=== PATIENT | female | born 1990 | race African-American/Black ===

== ENCOUNTER 2017-06-21 11:25 | Emergency (ER) | payer OTHER ==
[2017-06-21] MEDS ORDERED: LIDOCAINE VISCOUS 2% PO ONE (17:14)
--- NOTE | 2017-06-21 17:18 | Emergency Department Report ---
ED ENT HPI - General Chief complaint: Sore Throat Stated complaint: FLU LIKE SYMPTOMS Time Seen by Provider: 06/21/17 15:43 Source: patient Mode of arrival: Ambulatory Limitations: No Limitations - History of Present Illness Initial comments: This is a 27-year-old female nontoxic, well nourished in appearance, no acute signs of distress presents to the ED with c/o of sore throat x1 week. Patient describes sore throat as sensation of swallowing razer blades. Patient denies any difficulty breathing, hoarness, chest pain, shortness of breathe, drooling, cough, body aches, fever, chills, numbness or tingling. Patient denies any allergies or PMH. MD complaint: sore throat -: week(s) (1) Location: throat Severity: mild Severity scale (0 -10): 8 Consistency: constant Improves with: none Worsens with: swallowing Associated Symptoms: pain with swallowing, sore throat. denies: fever, cough, gum swelling, toothache, tinnitus, hearing loss, discharge from ear, rhinorrhea - Related Data Previous Rx's Medication Instructions Recorded Last Taken Type Ibuprofen [Motrin] 600 mg PO Q8H PRN #30 tablet 09/26/14 Unknown Rx Sulfamethoxazole/Trimethoprim 1 each PO BID #10 tablet 09/26/14 Unknown Rx [Bactrim Ds] traMADol [Ultram] 50 mg PO Q6HR PRN #14 tablet 09/26/14 Unknown Rx Amoxicillin/K Clav Tab [Augmentin 1 tab PO Q12HR #20 tab 06/21/17 Unknown Rx 875 mg] Nystas/Diphen/Xyl Visc/Mylanta 30 ml MM Q4H PRN 10 Days ml 06/21/17 Unknown Rx [Magic Mouthwash] Allergies Allergy/AdvReac Type Severity Reaction Status Date / Time No Known Allergies Allergy Verified 09/25/14 23:52 ED Dental HPI - General Chief complaint: Sore Throat Stated complaint: FLU LIKE SYMPTOMS Time Seen by Provider: 06/21/17 15:43 Source: patient Mode of arrival: Ambulatory Limitations: No Limitations - Related Data Previous Rx's Medication Instructions Recorded Last Taken Type Ibuprofen [Motrin] 600 mg PO Q8H PRN #30 tablet 09/26/14 Unknown Rx Sulfamethoxazole/Trimethoprim 1 each PO BID #10 tablet 09/26/14 Unknown Rx [Bactrim Ds] traMADol [Ultram] 50 mg PO Q6HR PRN #14 tablet 09/26/14 Unknown Rx Amoxicillin/K Clav Tab [Augmentin 1 tab PO Q12HR #20 tab 06/21/17 Unknown Rx 875 mg] Nystas/Diphen/Xyl Visc/Mylanta 30 ml MM Q4H PRN 10 Days ml 06/21/17 Unknown Rx [Magic Mouthwash] Allergies Allergy/AdvReac Type Severity Reaction Status Date / Time No Known Allergies Allergy Verified 09/25/14 23:52 ED Review of Systems ROS: Stated complaint: FLU LIKE SYMPTOMS Other details as noted in HPI Constitutional: denies: chills, fever Eyes: denies: eye pain, eye discharge, vision change ENT: throat pain. denies: ear pain Respiratory: denies: cough, shortness of breath, wheezing Cardiovascular: denies: chest pain, palpitations Endocrine: no symptoms reported Gastrointestinal: denies: abdominal pain, nausea, diarrhea Genitourinary: denies: urgency, dysuria, discharge Musculoskeletal: denies: back pain, joint swelling, arthralgia Skin: denies: rash, lesions Neurological: denies: headache, weakness, paresthesias Psychiatric: denies: anxiety, depression Hematological/Lymphatic: denies: easy bleeding, easy bruising ED Past Medical Hx - Past Medical History Previous Medical History?: No - Social History Smoking Status: Never Smoker Substance Use Type: None - Medications Home Medications: Home Medications Medication Instructions Recorded Confirmed Last Taken Type Ibuprofen [Motrin] 600 mg PO Q8H PRN #30 tablet 09/26/14 Unknown Rx Sulfamethoxazole/Trimethoprim 1 each PO BID #10 tablet 09/26/14 Unknown Rx [Bactrim Ds] traMADol [Ultram] 50 mg PO Q6HR PRN #14 tablet 09/26/14 Unknown Rx Amoxicillin/K Clav Tab [Augmentin 1 tab PO Q12HR #20 tab 06/21/17 Unknown Rx 875 mg] Nystas/Diphen/Xyl Visc/Mylanta 30 ml MM Q4H PRN 10 Days ml 06/21/17 Unknown Rx [Magic Mouthwash] ED Physical Exam - General Limitations: No Limitations General appearance: alert, in no apparent distress - Head Head exam: Present: atraumatic, normocephalic - Eye Eye exam: Present: normal appearance, PERRL, EOMI Pupils: Present: normal accommodation - ENT ENT exam: Present: mucous membranes moist, TM's normal bilaterally, normal external ear exam - Expanded ENT Exam Expanded Ear exam: Present: normal external inspection Mouth exam: Present: normal external inspection, tongue normal. Absent: drooling, trismus, muffled voice, tongue elevation, laceration Teeth exam: Present: normal inspection Throat exam: Positive: tonsillar erythema, tonsillomegaly (2+), tonsillar exudate, other (Uvula midline. No abscess or swelling noted. ). Negative: R peritonsillar mass, L peritonsillar mass - Neck Neck exam: Present: normal inspection, full ROM, lymphadenopathy (bilateral tonsilar). Absent: tenderness, meningismus, thyromegaly - Respiratory Respiratory exam: Present: normal lung sounds bilaterally. Absent: respiratory distress, wheezes, rales, rhonchi, stridor, chest wall tenderness, accessory muscle use, decreased breath sounds, prolonged expiratory - Cardiovascular Cardiovascular Exam: Present: regular rate, normal rhythm, normal heart sounds. Absent: bradycardia, tachycardia, irregular rhythm, systolic murmur, diastolic murmur, rubs, gallop - GI/Abdominal GI/Abdominal exam: Present: soft, normal bowel sounds - Extremities Exam Extremities exam: Present: normal inspection - Back Exam Back exam: Present: normal inspection - Neurological Exam Neurological exam: Present: alert, oriented X3 - Psychiatric Psychiatric exam: Present: normal affect, normal mood - Skin Skin exam: Present: warm, dry, intact, normal color. Absent: rash ED Course Vital Signs 06/21/17 12:19 Temperature 98.5 F Pulse Rate 78 Respiratory 16 Rate Blood Pressure 111/65 O2 Sat by Pulse 96 Oximetry - Reevaluation(s) Reevaluation #1: 06/21/17 17:17 Patient is speaking in full sentences with no signs of distress noted. ED Medical Decision Making - Medical Decision Making This is a 27-year-old female that presents with tonsillitis with exudate. Patient is stable and was examined by me. Patient received Lidocaine visous in the ED. Patient will be treated with agumentin and magic mouth wash. Vtials signs stable. Patient was instructed to Follow-up with a primary care doctor in 3-5 days or if symptoms worsen and continue return to emergency room as soon as possible. At time time of discharge, the patient does not seem toxic or ill in appearance. No acute signs of distress noted. Patient agrees to discharge treatment plan of care. No further questions noted by the patient. Critical care attestation.: If time is entered above; I have spent that time in minutes in the direct care of this critically ill patient, excluding procedure time. ED Disposition Clinical Impression: Tonsillitis with exudate Disposition: TO HOME OR SELFCARE Is pt being admited?: No Does the pt Need Aspirin: No Condition: Stable Instructions: Tonsillitis (ED), Amoxicillin/Clavulanate Potassium (By mouth) Additional Instructions: Follow-up with a primary care doctor in 3-5 days or if symptoms worsen and continue return to emergency room as soon as possible. Prescriptions: Amoxicillin/K Clav Tab [Augmentin 875 mg] 1 tab PO Q12HR #20 tab Nystas/Diphen/Xyl Visc/Mylanta [Magic Mouthwash] 30 ml MM Q4H PRN 10 Days ml PRN Reason: Sore Throat Referrals: PRIMARY MD NATI [Primary Care Provider] - 3-5 Days JACQUELIN CHAWLA MD [Staff Physician] - 3-5 Days [facility] [Outside] - 3-5 Days [facility] [Outside] - 3-5 Days Forms: Work/School Release Form(ED)
[2017-06-21 17:40] VITALS: BP 130/58
== END 2017-06-21 17:39 | disposition home or self-care (01) ==
LOC: ED 11:25
DX: J03.90 Acute tonsillitis, unspecified (principal)
CPT/HCPCS: 99282